=== PATIENT | male | born 1950 | race Caucasian/White ===

== ENCOUNTER → 2020-09-19 | Outpatient (CLI) | payer MEDICARE, OTHER | LOC: US 09:57 | PROVIDERS: Internal Medicine Nephrology | DX: N28.1 Cyst of kidney, acquired (principal); N18.30 Chronic kidney disease, stage 3 unspecified; R31.9 Hematuria, unspecified | CPT/HCPCS: 36415; 80053; 82570; 84156 ==

== ENCOUNTER → 2020-10-31 | Outpatient (CLI) | payer MEDICARE, OTHER | LOC: LAB 10:07 | PROVIDERS: Internal Medicine Nephrology | DX: N18.30 Chronic kidney disease, stage 3 unspecified (principal) | CPT/HCPCS: 80048 ==

== ENCOUNTER → 2020-12-25 | Outpatient (CLI) | payer MEDICARE, OTHER | LOC: LAB 09:07 | PROVIDERS: Internal Medicine Nephrology | DX: R31.9 Hematuria, unspecified (principal); N18.30 Chronic kidney disease, stage 3 unspecified; E83.52 Hypercalcemia | CPT/HCPCS: 36415; 80053; 82570; 83970; 84156 ==

== ENCOUNTER → 2021-04-04 | Outpatient (CLI) | payer MEDICARE, OTHER | LOC: LAB 09:56 | PROVIDERS: Internal Medicine Nephrology | DX: I47.2 Ventricular tachycardia (principal); E83.52 Hypercalcemia; N18.32 Chronic kidney disease, stage 3b; Z79.899 Other long term (current) drug therapy | CPT/HCPCS: 36415; 80053; 82570; 83970; 84156; 84439; 84443 ==

== ENCOUNTER → 2022-01-22 | Outpatient (CLI) | payer MEDICARE, OTHER | LOC: US 14:11 | PROVIDERS: Internal Medicine Nephrology | DX: N18.32 Chronic kidney disease, stage 3b (principal); N28.1 Cyst of kidney, acquired | CPT/HCPCS: 36415; 80053; 81001; 82570; 84156 ==

== ENCOUNTER → 2022-02-17 | Outpatient (CLI) | payer MEDICARE, OTHER | LOC: KOH-I 13:22 | DX: N28.9 Disorder of kidney and ureter, unspecified (principal) | CPT/HCPCS: 76775 ==